=== PATIENT | female | born 1970 | race Caucasian/White ===

== ENCOUNTER 2016-08-03 19:36 | Inpatient (IN) | payer MEDICAID, OTHER ==
[2016-08-03] MEDS ORDERED: FENTANYL 250 MCG/5 ML VIAL ONE (19:58)
[2016-08-03] MEDS ORDERED: DIPHENHYDRAMINE 50 MG/ML VIAL ONE ×2 (19:59→20:44)
[2016-08-03] MEDS ORDERED: HYDROmorphone HCL 1 MG/ML SYR ONE ×2 (20:15→20:28)
[2016-08-03] MEDS ORDERED: ONDANSETRON HCL 4 MG/2 ML VIAL ONE (20:15)
[2016-08-03 20:19] LABS: BASOPHILS 0.6 % (0.0-2.0); EOSINOPHILS 0.9 % (0.0-6.0); EOSINOPHILS# 0.1 X 10^3uL (0.0-0.4); HEMATOCRIT 39.6 % (36.0-48.0); HEMOGLOBIN 13.6 g/dL (12.0-16.0); LYMPHOCYTES 29.5 % (20.0-40.0); LYMPHOCYTES# 2.1 X 10^3uL (0.8-3.8); MEAN CELL VOLUME 92.8 fL (80.0-100.0); MEAN CORPUS. HGB CONCENTRATION 34.3 g/dL (32.0-36.0); MEAN CORPUSCULAR HEMOGLOBIN 31.8 pg (29.0-35.0); MEAN PLATELET VOLUME 9.1 fL (7.4-10.4); MONOCYTES# 0.7 X 10^3uL (0.2-1.0); NEUTROPHILS# 4.3 X 10^3uL (2.6-6.7); PLATELET COUNT 302 X 10^3uL (130-440); RED BLOOD COUNT 4.27 X 10^6uL (4.20-6.10); RED CELL DISTRIBUTION WIDTH 12.6 % (11.5-14.5); WHITE BLOOD COUNT 7.2 X 10^3uL (3.9-10.7)
[2016-08-03 20:27] LABS: BLOOD UREA NITROGEN 16 mg/dL (7-17); CALCIUM 9.2 mg/dL (8.4-10.2); CHLORIDE 102 mmol/L (98-107); CREATININE 0.7 mg/dL (0.5-1.0); EST GLOMERULAR FILTRATION RATE > 60 mL/min; GLUCOSE 93 mg/dL (70-100); INR 0.8; SODIUM 136 mmol/L (137-145)
[2016-08-03] MEDS ORDERED: HOME MEDICATION LIST NEEDED 1 EA EACH MISC ONE (21:08)
[2016-08-03] MEDS ORDERED: ONDANSETRON HCL 4 MG/2 ML VIAL IV PRN (21:11)
[2016-08-03] MEDS ORDERED: ACETAMINOPHEN 1,000 MG/100 ML VIAL IV ONE (21:20)
[2016-08-03] MEDS ORDERED: ACETAMINOPHEN 160 MG/5 ML UDC ONE (21:46)
[2016-08-03] MEDS ORDERED: NORMAL SALINE 1,000 ML IV SCH (22:00)
--- NOTE | 2016-08-03 22:13 | CT REPORT ---
INDICATION: Fall, right ankle fracture. COMPARISON: None. TECHNIQUE: Helical axial images were obtained through the right lower extremity. Multiplanar reconstr uctions were created. FINDINGS: There is a comminuted fracture of the third of the tibial diaphysis with posterior displace ment x 4 mm. There is also lateral displacement x 5 mm. There is a comminuted fracture of the distal third of the fibular diaphysis with posterior displacement x 4 mm. There is no extension of either fr acture to an articular surface. The ankle mortise is intact. No other fractures are identified. [place] us mineralization is normal. Muscle bulk is normal. There is mild soft tissue edema surrounding the a nkle. Splint material is present. IMPRESSION: 1. Comminuted fractures of distal tibia and fibula with minimal displacement as detailed above. No in tra-articular involvement. Results discussed with emergency department physician at 10:11 PM 08/03/2016. Final Electronic Signature: This report was electronically signed by Neymar Glover MD on 08/03/2016 1 0:11 PM. [email or web address] /
--- NOTE | 2016-08-03 22:28 | ER NURSING DOCUMENTATION ---
Nurse's Notes [facility] Name:Laurel Blanton Age:46 yrs Sex:Female :1970 Arrival Date:08/03/2016 Time:19:36 Bed6 Private MD:Sharron San Diagnosis:Distal Tibia Fracture-: Comminuted, Spiral;Distal Fibula Fracture-Spiral, Communited, Angulated Presentation: 08/03 19:41 Acuity: ROD 3 ma 19:42 Presenting complaint: Patient states: slipped on wet floor, c/o right ankle/lower leg lb pain. good csm to foot and toes. Notified ED Physician of Dr. Morgan notified. 19:42 Method Of Arrival: EMS: 410 lb 19:43 Care prior to arrival: Medication(s) given: Fentanyl 100MCG benadryl 50 mg ivp. lb Mechanism of Injury: Fall. 19:47 Transition of care: Other work place. lb Triage Assessment: 19:44 General: Appears distressed, Behavior is cooperative, pleasant. Pain: Complains of pain lb in right ankle Pain does not radiate. Pain currently is 7 out of 10 on a pain scale. Musculoskeletal: Circulation, motion, and sensation intact Capillary refill < 3 seconds Swelling present in right ankle. Historical: - Allergies: No known drug Allergies; - Home Meds: 1. Topamax Oral - PMHx: None; - PSHx: left leg; - Tetanus: < 10 years. - Ebola Screening: : Patient negative for fever greater than or equal to 101.5 degrees Fahrenheit, and additional compatible Ebola Virus Disease symptoms. Patient denies exposure to infectious person. Patient denies travel to an Ebola-affected area in the 21 days before illness onset. No symptoms or risks identified at this time. . - Immunization history: Pneumococcal vaccine is up to date, Flu Vaccine < 1 year. - Social history: Smoking status: Patient states was never smoker of tobacco. Patient uses alcohol weekly. - Code Status:: Full code. Screenin:46 Infectious Disease Risk None. Abuse screen: Denies threats or abuse. Denies injuries lb from another. Nutritional screening: No deficits noted. Assessment: 19:46 See Triage Assessment done by same RN. lb 20:41 Reassessment: Patient states feeling better. orthoglass splint applied by sonam lees and sugar tong. good csm to toes, positive pedal pulses. Vital Signs: 19:45 BP 112 / 74; Pulse 82; Resp 16; Pulse Ox 98% on R/A; Weight 76.2 kg; Height 5 ft. 7 in. lb (170.18 cm); Pain 7/10; 20:49 BP 115 / 81; Pulse 86; Resp 14; Temp 98; Pulse Ox 99% on 2 lpm NC; Pain 6/10; lb 22:25 BP 114 / 69; Pulse 80; Resp 14; Pain 5/10; lb 19:45 Body Mass Index 26.31 (76.20 kg, 170.18 cm) lb Mira Coma Score: 20:41 Eye Response: spontaneous(4). Verbal Response: oriented(5). Motor Response: obeys cd commands(6). Total: 15. ED Course: 19:37 Patient arrived in ED. em2 19:37 Sharron San is Private Physician. em2 19:41 Triage completed. ma 19:42 Desi Patrick is Primary Nurse. lb 19:46 Maintain field IV. Dressing intact. Good blood return noted. lb 19:46 Valuables Remains with patient Call light in reach. Side rails up X2. lb 20:05 Jesús Morgan MD is Attending Physician. cd 20:08 Port Xray Completed. tt 20:08 ANKLE; [address] [place] [id number]+Rad Sent. tt 20:35 Port Xray Completed. tt 20:35 ANKLE; [address] [place] [id number]+Rad Sent. tt 20:37 Oxygen Oxygen administration via nasal cannula @ 2L/min. Posterior lower leg splint lb applied on right leg. Sugar tong splint applied on. 20:54 Mayank Gómez DO is Admitting Physician. cd 21:[address] tt 21:[address]. tt Administered Medications: 20:10 Drug: Zofran 4 mg; Route: IVP; Infused Over: 2 mins; Site: right antecubital; lb 21:13 Follow up: Response: Nausea is decreased lb 20:11 Drug: Dilaudid 1 mg; Route: IVP; Site: right antecubital; lb 21:13 Follow up: Response: Pain is decreased lb 20:20 Drug: Dilaudid 1 mg; Route: IVP; Site: right antecubital; lb 21:13 Follow up: Response: Pain is decreased lb 20:37 Drug: Benadryl 25 mg; Route: IVP; Site: right antecubital; lb 21:13 Follow up: Response: Marked relief of symptoms lb 20:59 Drug: NS 0.9% 1000 ml; Route: IV; Rate: bolus; Site: right antecubital; lb 22:10 Follow up: IV Status: Infusion continued upon admission; IV Intake: 700ml lb 22:26 Follow up: IV Status: IV converted to saline lock; IV Intake: 900ml lb 21:17 Drug: Ofirmev ; MAX of 1000 mg, give 1000 mg; Route: IV; Rate: bolus; Infused Over: 15 lb mins; Site: right antecubital; 22:01 Follow up: Response: Pain is decreased lb 22:01 Drug: Acetaminophen Liquid 240 mg; Route: PO; lb 22:09 Follow up: Response: Pain is decreased lb Intake: 22:10 IV: 700ml; Total: 700ml. lb 22:26 IV: 900ml; Total: 1600ml. lb 22:27 IV: 1000ml (NS); Total: 2600ml. lb Output: 22:27 Urine: 400ml (Voided); Total: 400ml. lb Outcome: 21:00 Decision to Admit by Provider. cd 22:10 Admitted to Med/surg lb 22:12 Condition: stable lb 22:12 Report given to Anmol GUTIERREZ 22:12 Instructed on need to admit Ortho Care 22:27 Patient left the ED. lb Signatures: Kianna Pineda, RN RN Jesús Avalos MD MD cd Summer Jaeger tt Mart-reg, Jenn-reg em2 Desi Patrick lb
--- NOTE | 2016-08-03 22:28 | ER PHYSICIAN DOCUMENTATION ---
Physician Documentation [facility] Name:Laurel Blanton Age:46 yrs Sex:Female :1970 Arrival Date:08/03/2016 Time:19:36 Bed6 Private MD:Sharron San ED, Chris Disposition: 08/03/16 21:00 Admit ordered for Mayank Gómez. Preliminary diagnosis are Distal Tibia Fracture - : Comminuted, Spiral, Distal Fibula Fracture - Spiral, Communited, Angulated. - Bed requested for Medical/Surgical. - Condition is Fair. - Problem is new. - Symptoms have improved. 23 HR OBS No HPI: 08/03 20:05 This 46 yrs old Female presents to ER via EMS with complaints of Leg Injury - cd RIGHT. 20:05 The patient presents with decreased range of motion, a deformity, an injury, pain, that cd is acute. The complaints affect the right spivey and anterior aspect of right ankle. Context: The problem was sustained at work, resulted from slipped on the floor, the patient is not able to bear weight, the patient is not able to ambulate. Onset: The symptom(s)/episode began/occurred acutely, just prior to arrival. Associated signs and symptoms: The patient has no apparent associated signs or symptoms. Treatment prior to arrival includes: splinting the affected extremity, Fentanyl 200 mcg IV. Severity of symptoms: At their worst the symptoms were severe, in the emergency department the symptoms have improved, mildly. The patient has experienced a previous episode, and the symptoms today are exactly the same, when she sustained a left Tib Fib Fracture. ORIF performed by Dr. Mayank Gómez. Historical: - Allergies: No known drug Allergies; - Home Meds: 1. Topamax Oral - PMHx: None; - PSHx: left leg; - Tetanus: < 10 years. - Ebola Screening: : Patient negative for fever greater than or equal to 101.5 degrees Fahrenheit, and additional compatible Ebola Virus Disease symptoms. Patient denies exposure to infectious person. Patient denies travel to an Ebola-affected area in the 21 days before illness onset. No symptoms or risks identified at this time. . - Immunization history: Pneumococcal vaccine is up to date, Flu Vaccine < 1 year. - Social history: Smoking status: Patient states was never smoker of tobacco. Patient uses alcohol weekly. - Code Status:: Full code. ROS: 20:40 Constitutional: Negative for poor PO intake. cd 20:40 MS/extremity: Positive for decreased range of motion, deformity, pain, Negative for paresthesias, swelling, tingling. 20:40 All other systems are negative. Exam: 20:41 Head/Face: Normocephalic, atraumatic. cd ENT: Nares patent. No nasal discharge, no septal abnormalities noted. Tympanic membranes are normal and external auditory canals are clear. Oropharynx with no redness, swelling, or masses, exudates, or evidence of obstruction, uvula midline. Mucous membranes moist. Neck: Trachea midline, no thyromegaly or masses palpated, and no cervical lymphadenopathy. Supple, full range of motion without nuchal rigidity, or vertebral point tenderness. No Meningismus. Chest/axilla: Normal chest wall appearance and motion. Nontender with no deformity. No lesions are appreciated. Cardiovascular: Regular rate and rhythm with a normal S1 and S2. No gallops, murmurs, or rubs. Normal PMI, no JVD. No pulse deficits. Respiratory: Lungs have equal breath sounds bilaterally, clear to auscultation and percussion. No rales, rhonchi or wheezes noted. No increased work of breathing, no retractions or nasal flaring. Abdomen/GI: Soft, non-tender, with normal bowel sounds. No distension or tympany. No guarding or rebound. No evidence of tenderness throughout. Back: No spinal tenderness. No costovertebral tenderness. Full range of motion. Skin: Warm, dry with normal turgor. Normal color with no rashes, no lesions, and no evidence of cellulitis. 20:41 Neuro: Awake and alert, GCS 15, oriented to person, place, time, and situation. cd Cranial nerves II-XII grossly intact. Motor strength 5/5 in all extremities. Sensory grossly intact. Cerebellar exam normal. Normal gait. 20:41 Constitutional: The patient appears alert, awake, non-diaphoretic, non-toxic, well developed, well nourished, anxious, obese, in obvious distress, severely distressed. 20:41 Musculoskeletal/extremity: Extremities: grossly normal except: noted in the anterior aspect of right ankle and right spivey: decreased ROM, deformity, pain, ROM: limited passive range of motion due to pain, Circulation is intact in all extremities. Sensation intact. Calcaneus exam normal. Weight bearing: is unable to bear weight. Vital Signs: 19:45 BP 112 / 74; Pulse 82; Resp 16; Pulse Ox 98% on R/A; Weight 76.2 kg; Height 5 ft. 7 in. lb (170.18 cm); Pain 7/10; 20:49 BP 115 / 81; Pulse 86; Resp 14; Temp 98; Pulse Ox 99% on 2 lpm NC; Pain 6/10; lb 22:25 BP 114 / 69; Pulse 80; Resp 14; Pain 5/10; lb 19:45 Body Mass Index 26.31 (76.20 kg, 170.18 cm) lb Mira Coma Score: 20:41 Eye Response: spontaneous(4). Verbal Response: oriented(5). Motor Response: obeys cd commands(6). Total: 15. Procedures: 20:55 Reduction: of the right ankle and anterior aspect of right ankle, using traction, cd Immobilized with OCL splint, Patient tolerated well. Post reduction film - reveals improved alignment. 21:00 Splinting: Splint applied to right leg using Orthoglass splint, applied by myself. post cd reduction film - reveals improved alignment, Examined by me, post splint application: neurovascular intact, Patient tolerated well. MDM: 19:45 Data interpreted: Pulse oximetry: on room air is 98 %. Interpretation: normal. cd 19:56 Differential diagnosis: closed fracture. cd 20:05 Patient medically screened. cd 20:43 Data reviewed: vital signs, nurses notes, EMS record, old medical records, radiologic cd studies, plain films, and as a result, I will admit patient, initiate a consult, with an orthopedic surgeon. 20:44 Counseling: I had a detailed discussion with the patient and/or guardian regarding: the cd historical points, exam findings, and any diagnostic results supporting the discharge/admit diagnosis, lab results, radiology results, the need for further work-up and treatment in the hospital. Response to treatment: the patient's symptoms have markedly improved after treatment, and as a result, I will admit patient. 20:46 Physician consultation: Mayank Gómez DO was called at 20:45, was contacted at 20:45, cd regarding admission, to the floor, consult, patient's condition, and will see patient in inpatient room, tomorrow. 20:50 Admission orders: after a detailed discussion of the patient's condition and case, the cd admit orders are written by me. 21:00 Test interpretation: by ED physician or midlevel provider: plain radiologic studies, cd See reports. Comminuted, angulated, right Tibial and Fibular Fracture; Very good reduction by Dr. Morgan. 08/03 20:29 Order name: CBC AUTO DIF, MDIF/RMOR IF IND; Complete Time: 20:33 EDMS 08/03 20:33 Interpretation: Normal. 08/03 20:29 Order name: BASIC METABOLIC PANEL; Complete Time: 20:33 EDMS 08/03 20:33 Interpretation: Normal. 08/03 20:29 Order name: PROTIME/INR; Complete Time: 20:33 EDMS 08/03 20:33 Interpretation: Normal. 08/03 20:06 Order name: ANKLE; [address] [place] [id number]+Rad cd 08/03 20:32 Order name: ANKLE; [address] [place] [id number]+Rad 08/03 22:15 Order name: CAT SCAN; LOWER EXTR W/O [id number] EDRI 08/03 20:32 Order name: Ice Packs; Complete Time: 20:38 cd 08/03 20:07 Order name: NPO; Complete Time: 20:10 cd 08/03 20:07 Order name: Iv Saline Lock; Complete Time: 20:10 cd 08/03 20:34 Order name: Oxygen; Complete Time: 20:38 cd Dispensed Medications: 20:10 Drug: Zofran 4 mg; Route: IVP; Infused Over: 2 mins; Site: right antecubital; lb 21:13 Follow up: Response: Nausea is decreased lb 20:11 Drug: Dilaudid 1 mg; Route: IVP; Site: right antecubital; lb 21:13 Follow up: Response: Pain is decreased lb 20:20 Drug: Dilaudid 1 mg; Route: IVP; Site: right antecubital; lb 21:13 Follow up: Response: Pain is decreased lb 20:37 Drug: Benadryl 25 mg; Route: IVP; Site: right antecubital; lb 21:13 Follow up: Response: Marked relief of symptoms lb 20:59 Drug: NS 0.9% 1000 ml; Route: IV; Rate: bolus; Site: right antecubital; lb 22:10 Follow up: IV Status: Infusion continued upon admission; IV Intake: 700ml lb 22:26 Follow up: IV Status: IV converted to saline lock; IV Intake: 900ml lb 21:17 Drug: Ofirmev ; MAX of 1000 mg, give 1000 mg; Route: IV; Rate: bolus; Infused Over: 15 lb mins; Site: right antecubital; 22:01 Follow up: Response: Pain is decreased lb 22:01 Drug: Acetaminophen Liquid 240 mg; Route: PO; lb 22:09 Follow up: Response: Pain is decreased lb Signatures: Kianna Pineda, MATT RN Jesús Avalos MD MD cd Bollock, Lynda lb
[2016-08-03] MEDS: HYDROmorphone HCL 1 MG/ML SYR IV PRN (23:58)
[2016-08-04] MEDS: DIPHENHYDRAMINE 50 MG/ML VIAL IV PRN ×2 (00:44→07:57)
[2016-08-04] MEDS: HYDROmorphone HCL 1 MG/ML SYR IV PRN ×7 (00:44→16:37)
[2016-08-04] MEDS: ACETAMINOPHEN 1,000 MG/100 ML VIAL IV SCH ×2 (03:19→08:06)
--- NOTE | 2016-08-04 07:53 | RADIOLOGY REPORT ---
A single view of the chest demonstrates the heart, vessels and lungs to be unremarkable. No infiltrate, fluid or pneumothorax is seen. IMPRESSION: Unremarkable limited single view of the chest. MTDD
--- NOTE | 2016-08-04 07:53 | RADIOLOGY REPORT ---
Initial views of the right ankle at 1946 hours demonstrates comminuted distal terrance-metaphyseal fractures of both the tibia and fibula. I do not identify interarticular involvement on these views. There is approximately 30 degrees of apex medial angulation of both fractures. Additional films at 2037 hours demonstrates interval partial reduction and splinting. On the AP view there is a question of interarticular extension of the tibial fracture. No stepoff in the articular surface is identified. IMPRESSION: Angulated comminuted fractures of the right distal tibia and fibula as described with subsequent reduction and splinting. Further evaluation with CT scanning may be of benefit. RCD
[2016-08-04] MEDS ORDERED: CEFAZOLIN SODIUM 1 GM in NORMAL SALINE MINI-BAG+ 100 ML IV ONE (10:41)
[2016-08-04] MEDS ORDERED: BUPIVACAINE/EPI 0.25% 1 VIAL VIAL ONE ×2 (11:15→14:41)
[2016-08-04] MEDS ORDERED: BACITRACIN 50,000 UNITS VIAL IM ONE ×3 (11:15→14:09)
[2016-08-04] MEDS ORDERED: BACITRACIN 14 APP/14 GM TUBE TOPICAL ONE (11:15)
[2016-08-04] MEDS ORDERED: NORMAL SALINE FLUSH 20 ML ONE (11:16)
[2016-08-04] MEDS ORDERED: DIPHENHYDRAMINE 50 MG/ML VIAL IV PRN ×2 (11:26→14:47)
[2016-08-04] MEDS ORDERED: ONDANSETRON HCL 4 MG/2 ML VIAL IV PRN ×4 (11:26→16:12)
[2016-08-04] MEDS ORDERED: LACTATED RINGERS 1,000 ML IV SCH ×3 (11:26→15:00)
[2016-08-04] MEDS ORDERED: HYDROmorphone HCL 1 MG/ML SYR IV PRN ×5 (11:26→16:12)
[2016-08-04] MEDS ORDERED: NORMAL SALINE 1,000 ML IV SCH ×2 (11:26→14:47)
[2016-08-04] MEDS ORDERED: MIDAZOLAM HCL 2 MG/2 ML SYR IV ONE (11:26)
[2016-08-04] MEDS ORDERED: FAMOTIDINE IN SALINE, ISO-OSM 20 MG/50 ML PIGGYBACK IV SCH ×2 (11:26→14:47)
[2016-08-04] MEDS ORDERED: ACETAMINOPHEN 1,000 MG/100 ML VIAL IV SCH ×4 (11:26→15:00)
[2016-08-04] MEDS ORDERED: LIDOCAINE HCL 1% 20 ML VIAL SUBCUT ONE ×2 (11:26→14:47)
[2016-08-04] MEDS: ONDANSETRON HCL 4 MG/2 ML VIAL IV ONE ×2 (11:36→22:49)
[2016-08-04] MEDS ORDERED: CEFAZOLIN SODIUM 1 GM/10 ML VIAL ONE (11:40)
[2016-08-04] MEDS ORDERED: MIDAZOLAM HCL 2 MG/2 ML VIAL ONE (11:40)
[2016-08-04] MEDS ORDERED: ROCURONIUM BROMIDE 50 MG/5 ML VIAL IV ONE (11:50)
[2016-08-04] MEDS ORDERED: SUCCINYLCHOLINE CHLORIDE 200 MG/10 ML VIAL ONE (11:50)
[2016-08-04] MEDS ORDERED: FENTANYL 250 MCG/5 ML VIAL ONE (11:51)
[2016-08-04] MEDS: CEFAZOLIN SODIUM 1 GM in NORMAL SALINE MINI-BAG+ 100 ML IV ONE ×2 (11:57→22:50)
[2016-08-04] MEDS ORDERED: DEXAMETHASONE 10 MG/ML VIAL ONE (12:43)
[2016-08-04] MEDS ORDERED: MEPERIDINE HCL/PF 50 MG/ML SYR IV PRN (14:47)
[2016-08-04] MEDS ORDERED: FENTANYL 100 MCG/2 ML VIAL IV PRN (14:47)
[2016-08-04] MEDS ORDERED: HYDROmorphone HCL 1 MG/ML SYR ONE (15:50)
[2016-08-04] MEDS ORDERED: ONDANSETRON HCL 4 MG/2 ML VIAL ONE (15:50)
[2016-08-04] MEDS ORDERED: ACETAMINOPHEN 1,000 MG/100 ML VIAL IV ONE (15:59)
[2016-08-04] MEDS ORDERED: DEXTROSE 5% LACTATED RINGERS 1,000 ML IV SCH (16:12)
[2016-08-04] MEDS ORDERED: ACETAMINOPHEN 325 MG TABLET PO PRN (16:12)
--- NOTE | 2016-08-04 16:14 | HISTORY & PHYSICAL ---
DATE OF CONSULTATION: 08/04/16 PHYSICIAN: Mayank Gómez DO CHIEF COMPLAINT: Status post fall. HISTORY OF PRESENT ILLNESS: Patient is a 46-year-old female who was working at the [employer] [place] the [employer] office where she slipped on a greasy floor. PAST MEDICAL HISTORY 1. Anxiety. 2. Had almost the exact same injury a couple of years ago and underwent open reduction, internal fixation with removal of hardware subsequently. SOCIAL HISTORY: Patient is a smoker and a social drinker. ALLERGIES: No known drug allergies. She has nausea with aspirin and has itching with Dilaudid. MEDICATIONS Topamax for medication. REVIEW OF SYSTEMS: Within normal limits for all body systems. PHYSICAL EXAMINATION GENERAL: Alert and oriented x3. Peripheral neurovascular status is intact. HEENT: Pupils are equally round and reactive to light and accommodation. Extraocular muscles are intact. CHEST: Clear to auscultation bilaterally. No wheezes, rales or rhonchi. HEART: Regular rate and rhythm with normal S1, S2. ABDOMEN: Soft, nontender, nondistended. EXTREMITIES: Examination of the right lower extremity demonstrates positive swelling and tenderness to palpation. IMAGING: Plain film x-rays demonstrate a right distal tib-fib fracture. CT scan demonstrated no involvement of the joint. Dorsalis pedis pulses 2/4. Compartments are soft in the leg. IMPRESSION: Right tib-fib fracture. PLAN: Open reduction, internal fixation with a plate on the fibula and an intramedullary nail on the tibia. [facility]
--- NOTE | 2016-08-04 16:42 | RADIOLOGY REPORT ---
Views of the right lower leg and right ankle from the C-Arm in the operating room are compared with films of the previous date. There has been interval open reduction and internal fixation of the distal tibia and fibula fractures. There has been placement of a tibial intramedullary porfirio with proximal and distal transfixion screws and a plate and multiple screws securing the fibula. No new abnormality is identified. IMPRESSION: Interval open reduction and internal fixation of the right distal tibia and fibula fractures. JAYLEN
[2016-08-04] MEDS: CEFAZOLIN SODIUM 1 GM in NORMAL SALINE MINI-BAG+ 100 ML IV SCH (17:52)
--- NOTE | 2016-08-04 19:36 | OPERATIVE REPORT ---
DATE OF SURGERY: 08/04/16 SURGEON: Mayank Gómez DO ANESTHESIA: General. PREOPERATIVE DIAGNOSIS: Right tibial and fibular fracture. POSTOPERATIVE DIAGNOSIS: Right tibial and fibular fracture. OPERATION PERFORMED: Right tibial and fibula open reduction, internal fixation. ESTIMATED BLOOD LOSS: 112 mL. TOTAL TOURNIQUET TIME: 71 minutes. IMPLANTS 1. Demineralized bone matrix, puddy, 2.5 mL. Serial #[id number] from the musculoskeletal transplant foundation. Item #[id number]. 2. Synthes 11 mm titanium cannulated tibial nail by 330 mm in length. PROCEDURE NOTE: The patient was brought to the operating room suite and after administration of general anesthesia the right lower extremity was prepped and draped in a sterile fashion. The fibula was addressed first as the patient had a significantly comminuted fibula which was affecting the length of the tibia. The fibula incision site was injected with 0.25% bupivacaine with epinephrine prior to incision. Dissection was carried down to the level of the fracture after careful dissection avoiding all neurovascular structures and cauterizing with an electrocautery device. The fracture was identified, and there were 3 very small pieces of loose bone which fell out of the fracture site after irrigation. All pieces of bone that had soft tissue attachment were kept in place. The fracture was difficult to reduce due to the significant amount of comminution; however, the proximal and distal fragment were able to be brought to the appropriate length by utilizing 1 superior bone fragment which was a keystone type piece which was able to be used to identify the appropriate length. The 1/3 tubular plate was placed after appropriate reduction of the fracture to its appropriate length. The plate was positioned and screws were inserted both proximally and distally both with locking and unlocking screws after first predrilling and measuring. The screws had 6 cortices of purchase proximally and 6 distally. This area was copiously irrigated with bacitracin infused with normal saline and then demineralized bone matrix was inserted into the void where some of the fracture fragments had fallen out. A suture was utilized to reapproximate the bone fragments that did have soft tissue attachment. The incision was closed utilizing #1 Vicryl, followed by 0 Vicryl, followed by 3-0 Vicryl, followed by a running modified horizontal mattress with 3-0 nylon at the level of the skin. Attention was then drawn towards the tibia. Utilizing fluoroscopic imaging, fracture reduction was noted to be obtainable. An incision was made over the anterior aspect of the knee at the level of the patellar tendon. Dissection was carried down to the peritenon. The patellar tendon was retracted medially, and a guidewire was inserted into the superior and anterior aspect of the tibia in line with the lateral tibial spine on AP fluoroscopic projection. A drill was performed, followed by a series of reamers up to a size 12 reamer. The reaming was done after first inserting a long ball tip guidewire, distal, and obtaining the length of the tibia nail to be used. After reaming was complete, the appropriate size and length nail was inserted into place. The nail was locked proximally with the guide, which was attached to the nail, and the distal 2 screws were positioned and drilled utilizing a perfect muscogee technique. All incision sites were injected 0.25% bupivacaine with epinephrine prior to incision and a [id number] technique was used for the locking screws. All of the incisions were copiously irrigated with bacitracin infused with normal saline and closed in a stepwise fashion utilizing #1 Vicryl, followed by 0 Vicryl, followed by 3-0 Vicryl, followed by nylon at the level of the skin. The incisions were dressed with bacitracin ointment, Xeroform, 4x4s, ABDs, cast padding, and a Tri-Gonzales splint followed by an Bradley bandage. The patient was transferred from the operating room suite to the recovery room in stable condition. JAYLEN
[2016-08-05] MEDS: CEFAZOLIN SODIUM 1 GM in NORMAL SALINE MINI-BAG+ 100 ML IV SCH ×2 (01:04→08:21)
[2016-08-05] MEDS: HYDROcodone/APAP 5/325 MG 1 TAB TABLET PO PRN ×4 (06:41→20:09)
[2016-08-05] MEDS: HYDROmorphone HCL 2 MG TABLET PO PRN ×2 (09:58→22:45)
[2016-08-05] MEDS: DIPHENHYDRAMINE 50 MG/ML VIAL IV PRN ×2 (10:05→22:44)
[2016-08-05 14:00] LABS: BASOPHIL# 0.1 X 10^3uL (0.0-0.1); BASOPHILS 0.8 % (0.0-2.0); EOSINOPHILS 0.2 % (0.0-6.0); HEMATOCRIT 33.1 % (36.0-48.0); HEMOGLOBIN 11.3 g/dL (12.0-16.0); LYMPHOCYTES 14.1 % (20.0-40.0); LYMPHOCYTES# 1.6 X 10^3uL (0.8-3.8); MEAN CELL VOLUME 94.4 fL (80.0-100.0); MEAN CORPUS. HGB CONCENTRATION 34.1 g/dL (32.0-36.0); MEAN CORPUSCULAR HEMOGLOBIN 32.2 pg (29.0-35.0); MONOCYTES 7.8 % (2.0-10.0); MONOCYTES# 0.9 X 10^3uL (0.2-1.0); NEUTROPHILS 77.1 % (54.0-75.0); NEUTROPHILS# 8.8 X 10^3uL (2.6-6.7); RED BLOOD COUNT 3.51 X 10^6uL (4.20-6.10); RED CELL DISTRIBUTION WIDTH 12.8 % (11.5-14.5); WHITE BLOOD COUNT 11.4 X 10^3uL (3.9-10.7)
--- NOTE | 2016-08-05 15:56 | PROGRESS NOTE: Orthopedics ---
Orthopedic PN Subjective - Subjective Principal Diagnosis: s/p Right Tib-Fib ORIF Post-op Day: 1 Interval history: The patient has been doing well. She has been resting and keeping her leg elevated. She is been tolerating a regular diet. She has no complaints. Ortho PN Objective Exam - Latest Vital Signs and I&O Latest Vital Signs/I&O: Vital Signs Temp 36.9 C 08/05/16 15:00 Pulse 101 H 08/05/16 15:00 Resp 15 08/05/16 15:00 BP 110/61 08/05/16 15:00 Pulse Ox 100 08/05/16 15:00 Intake & Output 08/04/16 08/05/16 08/05/16 17:59 05:59 17:59 Intake Total 1800 1251 Output Total 1900 0 Balance 1800 -649 0 Weight 85.5 kg Intake: IV 1800 951 Right Antecubital 1800 right hand 951 Oral 0 300 Output: Urine 1900 Stool 0 0 Other: Urine Appearance Clear Clear Clear Urine Color Pale Pale Pale Yellow Yellow Yellow Voiding Method Bedpan Bedside Commode Bedside Commode # Voids 3 - Post-Operative Exam Post-op Day: 1 Dressing Status: dry & intact Distal Pulses: +2 Active Motor: intact Sensation: abnormal (diminished sensation in the first web space.) Weight bearing status: non weight bearing - Lab Labs: Laboratory Last Values WBC 11.4 X 10^3uL (3.9-10.7) H 08/05/16 13:13 RBC 3.51 X 10^6uL (4.20-6.10) L 08/05/16 13:13 Hgb 11.3 g/dL (12.0-16.0) L 08/05/16 13:13 Hct 33.1 % (36.0-48.0) L 08/05/16 13:13 MCV 94.4 fL (80.0-100.0) 08/05/16 13:13 MCH 32.2 pg (29.0-35.0) 08/05/16 13:13 MCHC 34.1 g/dL (32.0-36.0) 08/05/16 13:13 RDW 12.8 % (11.5-14.5) 08/05/16 13:13 Plt Count 249 X 10^3uL (130-440) 08/05/16 13:13 MPV 9.0 fL (7.4-10.4) 08/05/16 13:13 Neutrophils % 77.1 % (54.0-75.0) H 08/05/16 13:13 Lymphocytes % 14.1 % (20.0-40.0) L 08/05/16 13:13 Eosinophils % 0.2 % (0.0-6.0) 08/05/16 13:13 Basophils % 0.8 % (0.0-2.0) 08/05/16 13:13 Neutrophils # 8.8 X 10^3uL (2.6-6.7) H 08/05/16 13:13 Lymphocytes # 1.6 X 10^3uL (0.8-3.8) 08/05/16 13:13 Monocytes 7.8 % (2.0-10.0) 08/05/16 13:13 Monocytes # 0.9 X 10^3uL (0.2-1.0) 08/05/16 13:13 Eosinophils # 0.0 X 10^3uL (0.0-0.4) 08/05/16 13:13 Basophils # 0.1 X 10^3uL (0.0-0.1) 08/05/16 13:13 PT 11.9 sec (13.0-16.6) L 08/03/16 19:20 INR 0.8 08/03/16 19:20 Sodium 136 mmol/L (137-145) L 08/03/16 19:20 Potassium 4.0 mmol/L (3.5-5.1) 08/03/16 19:20 Chloride 102 mmol/L (98-107) 08/03/16 19:20 Carbon Dioxide 25 mmol/L (22-30) 08/03/16 19:20 BUN 16 mg/dL (7-17) 08/03/16 19:20 Creatinine 0.7 mg/dL (0.5-1.0) 08/03/16 19:20 GFR Calculation > 60 mL/min 08/03/16 19:20 Glucose 93 mg/dL (70-100) 08/03/16 19:20 Calcium 9.2 mg/dL (8.4-10.2) 08/03/16 19:20 ABO Group Cancelled 08/04/16 10:42 Rh Factor Cancelled 08/04/16 10:42 Antibody Screen Cancelled 08/04/16 10:42 - Allied Health Notes Allied health notes reviewed: nursing, PT Assessment and Plan-Ortho - Date of Encounter Date of Encounter: 08/05/16 (1) Tibia/fibula fracture Status: Acute Current Visit: No Quality Questions - VTE Prophylaxis Assessment VTE Present on Admission?: No Patient at risk for venous thromboembolism?: Yes VTE Risk Level: Moderate Risk VTE Medical Contraindication: Not needed (1) Tibia/fibula fracture Qualifiers: Fracture type: closed Laterality: right Fracture healing: with routine healing
[2016-08-05 18:45] VITALS: RESP 16
[2016-08-06] MEDS: HYDROcodone/APAP 5/325 MG 1 TAB TABLET PO PRN ×2 (03:49→08:55)
[2016-08-06 06:51] VITALS: BP 116/81; PULSE 81; TEMP 98; O2SAT 94
--- NOTE | 2016-08-06 08:48 | DC SUMMARY: Orthopedic Note ---
Discharge Summary: Surg/OB Provider: Date of Admission: 08/03/16 Admitting Provider: CUATE GARCIA DO Attending Provider: CUATE GARCIA DO Discharging Provider: CUATE GARCIA DO Primary Care Provider: Discharge Date: 08/06/16 - Diagnosis (1) Tibia/fibula fracture Status: Acute Qualifiers: Fracture type: closed Laterality: right Fracture healing: with routine healing Hospital Course: Ms. PARHAM is a 46 year old female who underwent a right tibia intramedullary nailing with fibula open reduction internal fixation on 04 August. The patient was put on appropriate postoperative DVT and antibiotic prophylaxis and was up and ambulating well with her crutches and walker nonweightbearing with physical therapy. She is tolerating a regular and having normal bowel bladder functions. Discharge - Patient/Caregiver Discharge Instructions Activity Level: nwb with crutches or a walker Diet: reg Additional Instructions: the patient will keep her leg iced and elevated as much as possible. She will follow up in 8-10 days. Overall discharge status: patient is progressing back to baseline Home Medications: HYDROmorphone HCL [Dilaudid*] 2 mg PO Q6H PRN #30 tablet PRN Reason: Pain HYDROcodone/APAP 5/325 MG [HYDROCODONE/APAP 5mg/325mg*] 2 tab PO Q3H PRN #60 tablet PRN Reason: Pain, Severe Disposition: HOME, SELF-CARE 1. Medical reason for no anticoagulation order on D/C?: Contraindicated 2. Medical reason for no anticoag overlap on D/C?: Contraindicated Orthopedic: Discharge Phy Exam - Latest Vital Signs and I&O Latest Vital Signs/I&O: Vital Signs Temp 36.7 C 08/06/16 06:49 Pulse 81 08/06/16 06:49 Resp 16 08/06/16 06:49 BP 116/81 08/06/16 06:49 Pulse Ox 94 08/06/16 06:49 Intake & Output 08/05/16 08/06/16 08/06/16 17:59 05:59 17:59 Intake Total 1250 540 Output Total 900 300 Balance 350 240 Weight 85.5 kg Intake: IV 330 right hand 330 Oral 920 540 Output: Urine 900 300 Stool 0 0 Other: Urine Appearance Clear Clear Urine Color Pale Yellow Yellow Voiding Method Bedside Commode Toilet - Post-Operative Exam Post-op Day: 2 Dressing Status: dry & intact Distal Pulses: +2 Active Motor: intact Sensation: abnormal (diminished sensation in the first web space.) ROM Flexion: gross motor intact ROM Extension: gross motor intact Weight bearing status: non weight bearing - Allied Health Notes Allied health notes reviewed: nursing, PT Discharge Summary Data - Medication History Medication History: Home Medications Albuterol Sulfate [Proventil Hfa] 2 puff INHALATION QID PRN 08/04/16 Ascorbic Acid [Vitamin C*] 500 mg PO DAILY 08/04/16 Biotin 1 mg PO DAILY 08/04/16 Cetirizine HCl [Zyrtec] 10 mg PO DAILY 08/04/16 Cranberry 500 mg PO DAILY 08/04/16 LORazepam [Ativan*] 1 mg PO BID PRN 08/04/16 Vit/Fe Fumarate/FA [ Rx 1] 1 tab PO DAILY 08/04/16 Ranitidine HCl [Zantac 75] 75 mg PO DAILY PRN 08/04/16 Topiramate [Topiramate*] 50 mg PO DAILY 08/04/16 Inpatient Medications 08/04/16 16:12 Acetaminophen [Tylenol] 325 mg PO Q4H PRN Dextrose 5% Lactated Ringers [D5 Lr 1000 ml] 1,000 ml IV CONT HYDROcodone/APAP 5/325 MG [Blanchard] 2 tab PO Q3H PRN HYDROmorphone HCL [Dilaudid] 0.5 mg IV Q5M PRN HYDROmorphone HCL [Dilaudid] 2 mg PO Q4H PRN Ondansetron HCl [Zofran] 4 mg IV Q4H PRN oxyCODONE HCL IR [Oxy Ir] 5 mg PO Q3H PRN 08/04/16 20:34 Diphenhydramine [Benadryl Inj] 25 mg IV Q4H PRN 08/05/16 16:00 aspirin EC [Ecotrin] 325 mg PO DAILY Procedures and tests throughout hospitalization: Completed Lab Orders 08/05/16 13:13 CBC AUTO DIF, MDIF/RMOR IF IND [HEM] Routine Completed Imaging Orders 08/04/16 14:55 FLUOROSCOPY, UP TO 1 [id number] [FLUORO] Routine 08/04/16 14:57 ANKLE; 2 [place] [id number] [RAD] Routine TIBIA/FIBULA; 2V RT [address] [RAD] Routine Pending Orders 08/03/16 21:08 Activity: Bedrest . Intake and Output QSHIFT I&O 08/03/16 21:14 Apply ice to affected area . Elevate affected extremity . 08/04/16 10:41 NPO After midnight 0000 PreOp Chlorahexidine wash .5minPreOp 08/04/16 11:26 Anesthesia Type . Insert Peripheral IV ONCE 08/04/16 14:47 Julius hugger if temp <34 C PRN Notify Anesthesia . Titrate Oxygen TITRATE B/W 90-95% Warm blankets if temp<36 C PRN 08/04/16 16:12 Admit: Inpatient Routine Activity: BRP w/ Assist Only . Activity: NWB USE CRUTCHES Apply ice to affected area PRN Incentive Spirometry Q1H Titrate Oxygen TITRATE TO >90% Vital Signs ROUTINE VITALS (Q4H) Acetaminophen [Tylenol] 325 mg PO Q4H PRN Dextrose 5% Lactated Ringers [D5 Lr 1000 ml] 1,000 ml IV CONT HYDROcodone/APAP 5/325 MG [Blanchard] 2 tab PO Q3H PRN HYDROmorphone HCL [Dilaudid] 0.5 mg IV Q5M PRN HYDROmorphone HCL [Dilaudid] 2 mg PO Q4H PRN Ondansetron HCl [Zofran] 4 mg IV Q4H PRN oxyCODONE HCL IR [Oxy Ir] 5 mg PO Q3H PRN 08/04/16 20:34 Diphenhydramine [Benadryl Inj] 25 mg IV Q4H PRN 08/04/16 Dinner Regular [DIET] 08/05/16 15:56 Sequential Compression Device WHILE IN BED 08/05/16 16:00 aspirin EC [Ecotrin] 325 mg PO DAILY Labs on day of discharge: Labs from last 24 hours 08/05/16 13:13 WBC 11.4 H RBC 3.51 L Hgb 11.3 L Hct 33.1 L MCV 94.4 MCH 32.2 MCHC 34.1 RDW 12.8 Plt Count 249 MPV 9.0 Neutrophils % 77.1 H Lymphocytes % 14.1 L Eosinophils % 0.2 Basophils % 0.8 Neutrophils # 8.8 H Lymphocytes # 1.6 Monocytes 7.8 Monocytes # 0.9 Eosinophils # 0.0 Basophils # 0.1
[2016-08-06] MEDS ORDERED: NORMAL SALINE FLUSH 250 ML ONE (10:51)
== END 2016-08-06 08:50 | disposition home or self-care (01) | DRG 494 ==
LOC: ER 19:36 → IN 22:15
PROVIDERS: ADMIT Orthopaedic Surgery; ATTEND Orthopaedic Surgery
PROC: 0QSG06Z Reposition Right Tibia with Intramedullary Internal Fixation Device, Open Approach (ICD-10-PCS; principal; 2016-08-03)
PROC: 0QSJ06Z Reposition Right Fibula with Intramedullary Internal Fixation Device, Open Approach (ICD-10-PCS; principal; 2016-08-03)
DX: S82.251A Displaced comminuted fracture of shaft of right tibia, initial encounter for closed fracture (principal); W01.0XXA Fall on same level from slipping, tripping and stumbling without subsequent striking against object, initial encounter
CPT/HCPCS: 29105; 29515; 36415; 71010; 73700; 76000; 80048; 85025; 85610; 96361; 96374; 96375; 99285; A0425; A0427; C1713; J0690; J1100; J1170; J1200; J2250; J2405; J7030